=== PATIENT | male | born 2000 | race Caucasian/White ===

== ENCOUNTER 2023-10-22 04:40 | Emergency (ER) | payer OTHER ==
[~2023-10-22] VITALS: Ht 172.7 cm; Wt 81.0 kg
[2023-10-22 06:14] LABS: Trichomonas vaginalis (AMP) NOT DETECTED (NEGATIVE)
[2023-10-22 06:39] LABS: GC DNA AMPLIFICATION NEGATIVE (NEGATIVE)
[2023-10-22] MEDS ORDERED: BACT800T5 PO (07:57)
[2023-10-22] MEDS ORDERED: IBUP-1022 PO (07:57)
[2023-10-22] MEDS: IBUPROFEN 600MG TAB PO ONE (08:05)
[2023-10-22] MEDS: BACTRIM 160MG/800MG DS TAB PO ONE (08:05)
[2023-10-22 08:10] VITALS: BP 154/85; TEMP 97; O2SAT 100
== END 2023-10-22 08:10 | disposition home or self-care (01) ==
LOC: M ED 04:40
DX: N45.1 Epididymitis (principal); Z79.1 Long term (current) use of non-steroidal anti-inflammatories (NSAID); Z79.2 Long term (current) use of antibiotics